=== PATIENT | male | born 1955 | race Caucasian/White ===

== ENCOUNTER 2021-04-01 08:06 | Inpatient (IN) | payer MEDICAID ==
[~2021-04-01] VITALS: Ht 162.6 cm; Wt 84.4 kg
[2021-04-01] MEDS ORDERED: ONDANSETRON HCL 4MG/2ML INJ IV STA (08:36)
[2021-04-01] MEDS ORDERED: MORPHINE SULFATE 4 MG/ML CPJ (NOT FOR IM USE) IV STA (08:36)
[2021-04-01] MEDS ORDERED: SODIUM CHLORIDE 0.9% 500 ML IV ONE (08:45)
[2021-04-01 09:01] LABS: BASOPHILS % 0.1 % (0.0-2.0); EOSINOPHILS % 4.2 % (0.0-5.0); HEMOGLOBIN. 8.7 g/dL (14.0-18.0); LYMPHOCYTES % 21.9 % (20.0-50.0); MEAN CORPUSCULAR VOLUME 95.4 fL (80.0-94.0); MEAN PLATELET VOLUME 9.8 fl (7.4-10.4); MONOCYTES % 10.1 % (2.0-8.0); NEUTROPHILS % 63.7 % (40.0-76.0); PLATELET 173 x1000/uL (130-400); RED BLOOD CELL COUNT 2.73 mill/uL (4.7-6.1); RED CELL DISTRIBUTION WIDTH 14.1 % (11.6-14.6)
[2021-04-01 09:06] LABS: CHLORIDE 115 mEq/L (98-107)
[2021-04-01] MEDS ORDERED: MAGNESIUM CITRATE 300ML SOLUTION PO ONE (09:45)
[2021-04-01] MEDS ORDERED: POLYETHYLENE GLYCOL 3350 (17GM) 1 DOSE PACK PO ONE (09:45)
[2021-04-01 13:02] LABS: CLARITY URINE CLEAR (CLEAR); COLOR URINE YELLOW (YELLOW); KETONES URINE NEGATIVE (NEGATIVE); LEUKOCYTE ESTERASE URINE NEGATIVE (NEGATIVE); NITRITE URINE NEGATIVE (NEGATIVE); OCCULT BLOOD URINE 1+ (NEGATIVE); PROTEIN URINE 3+ (NEGATIVE); SPECIFIC GRAVITY URINE 1.013 (1.005-1.030); UROBILINOGEN URINE 0.2 E.U./dL (0.2-1.0)
[2021-04-01] MEDS: ONDANSETRON HCL 4MG/2ML INJ IV PRN (15:35)
[2021-04-01] MEDS: DOCUSATE SODIUM 250MG CAPSULE PO SCH (15:35)
[2021-04-01] MEDS: AMLODIPINE 10MG TABLET PO SCH (15:36)
[2021-04-01] MEDS ORDERED: FURO40TA5 MT (15:58)
[2021-04-01] MEDS ORDERED: OMEP20CA14 MT (15:58)
[2021-04-01] MEDS ORDERED: PRED5TAB MT (15:58)
[2021-04-01] MEDS ORDERED: HYDR100T26 MT (15:58)
[2021-04-01] MEDS ORDERED: AMLO5TAB88 MT (15:58)
[2021-04-01] MEDS ORDERED: CLON1PAT11 TP (15:58)
[2021-04-01] MEDS ORDERED: METO-396 MT (15:58)
[2021-04-01 16:00] VITALS: BP 170/86
[2021-04-01 16:48] VITALS: BP 170/86
[2021-04-01] MEDS: FUROSEMIDE 40MG TABLET PO SCH ×2 (17:43→22:01)
[2021-04-01 20:00] VITALS: BP 159/89
[2021-04-01] MEDS ORDERED: EPOETIN ALFA 10000UNITS/ML VIAL SUBCUT SCH (22:45)
[2021-04-02] VITALS: BP 112/61
[2021-04-02] MEDS ORDERED: LACTULOSE 20G/30ML UDC PO NR (03:00)
[2021-04-02 04:00] VITALS: BP 141/72
[2021-04-02 07:24] LABS: BASOPHILS % 1.2 % (0.0-2.0); EOSINOPHILS % 5.4 % (0.0-5.0); HEMATOCRIT. 21.2 % (42.0-52.0); HEMOGLOBIN. 7.3 g/dL (14.0-18.0); LYMPHOCYTES % 30.4 % (20.0-50.0); MEAN CORPUSCULAR HEMOGLOBIN 32.4 pg (28.0-32.0); MEAN PLATELET VOLUME 10.3 fl (7.4-10.4); MONOCYTES % 9.9 % (2.0-8.0); NEUTROPHILS % 53.1 % (40.0-76.0); PLATELET 135 x1000/uL (130-400); RED BLOOD CELL COUNT 2.25 mill/uL (4.7-6.1); RED CELL DISTRIBUTION WIDTH 13.7 % (11.6-14.6)
[2021-04-02 08:00] VITALS: BP 152/69
[2021-04-02] MEDS ORDERED: DESMOPRESSIN ACETATE IVPB 18 MCG in SODIUM CHLORIDE 0.9% 50 ML IV ONE (09:00)
[2021-04-02] MEDS ORDERED: LACTULOSE 20G/30ML UDC PO SCH (09:00)
[2021-04-02] MEDS: DOCUSATE SODIUM 100MG CAPSULE PO SCH ×3 (09:46→16:38)
[2021-04-02] MEDS: AMLODIPINE 10MG TABLET PO SCH (09:46)
[2021-04-02] MEDS: BENAZEPRIL 10MG TABLET PO SCH ×2 (09:46→21:52)
[2021-04-02] MEDS: DOCUSATE SODIUM 250MG CAPSULE PO SCH (09:46)
[2021-04-02] MEDS ORDERED: SODIUM POLYSTYRENE SULFONATE 15 G/60 ML BOT PO SCH (10:00)
[2021-04-02 10:47] LABS: TOTAL IRON BINDING CAPACITY 198 ug/dL (250-450)
[2021-04-02 10:51] LABS: INR 1.1; PROTHROMBIN TIME 11.7 sec (9.6-11.0)
[2021-04-02 12:00] VITALS: BP 148/69
[2021-04-02] MEDS: IRON SUCROSE COMPLEX 100 MG/5 ML ML IV SCH (12:45)
[2021-04-02 16:00] VITALS: BP_SYST 170; BP_SYST 70; BP_DIAS 71
[2021-04-02] MEDS: CLONIDINE 0.1MG TABLET PO PRN (17:33)
[2021-04-02 20:00] VITALS: BP 176/77
[2021-04-02] MEDS ORDERED: EPOETIN ALFA 10000UNITS/ML VIAL SUBCUT ONE (21:30)
[2021-04-02] MEDS: HYDRALAZINE HCL 50MG TABLET PO SCH (21:53)
[2021-04-02] MEDS: EPOETIN ALFA-EPBX 4,000 UNIT/ML VIAL SUBCUT SCH (21:53)
[2021-04-03] VITALS (17 sets, daily range): BP systolic 115–155; BP diastolic 52–71
[2021-04-03] MEDS: HYDRALAZINE HCL 50MG TABLET PO SCH ×3 (06:05→21:48)
[2021-04-03] MEDS ORDERED: DESMOPRESSIN ACETATE IVPB 18 MCG in SODIUM CHLORIDE 0.9% 50 ML IV SCH (07:00)
[2021-04-03] MEDS: IRON SUCROSE COMPLEX 100 MG/5 ML ML IV SCH (09:03)
[2021-04-03] MEDS: AMLODIPINE 10MG TABLET PO SCH (09:03)
[2021-04-03] MEDS: BENAZEPRIL 10MG TABLET PO SCH ×2 (09:04→21:48)
[2021-04-03] MEDS: DOCUSATE SODIUM 100MG CAPSULE PO SCH ×3 (09:04→17:41)
[2021-04-03 09:07] LABS: ANTI-NUCLEAR ANTIBODIES DIRECT Negative (Negative); TRANSFERRIN 150 mg/dL (177-329)
[2021-04-03] MEDS: ONDANSETRON HCL 4MG/2ML INJ IV PRN (09:32)
[2021-04-03] MEDS ORDERED: CEFAZOLIN 1000MG PREMIX 50 ML IV ONE ×2 (12:30→12:39)
[2021-04-03] MEDS ORDERED: LIDOCAINE HCL 1% 20ML VIAL (Pyxis) INJ ONE (12:36)
[2021-04-03] MEDS ORDERED: FENTANYL CITRATE/PF 50MCG/ML 2ML VIAL ONE (12:39)
[2021-04-03] MEDS ORDERED: FENTANYL CITRATE/PF 50MCG/ML 2ML VIAL IV ONE (13:15)
[2021-04-03] MEDS ORDERED: EPOETIN ALFA 10000UNITS/ML VIAL SUBCUT NR (21:30)
[2021-04-03] MEDS ORDERED: EPOETIN ALFA-EPBX 4,000 UNIT/ML VIAL SUBCUT NR (21:30)
[2021-04-03] MEDS: METHYLPREDNISOLONE SOD SUCC 125 MG/2 ML VIAL IV SCH (21:48)
[2021-04-03 22:43] LABS: CLARITY URINE CLOUDY (CLEAR); COLOR URINE YELLOW (YELLOW); KETONES URINE NEGATIVE (NEGATIVE); LEUKOCYTE ESTERASE URINE NEGATIVE (NEGATIVE); NITRITE URINE NEGATIVE (NEGATIVE); OCCULT BLOOD URINE 2+ (NEGATIVE); PH URINE 5.5 (4.5-8.0); PROTEIN URINE 3+ (NEGATIVE); SPECIFIC GRAVITY URINE 1.012 (1.005-1.030); UROBILINOGEN URINE 0.2 E.U./dL (0.2-1.0)
[2021-04-04] VITALS: BP 124/60
[2021-04-04 04:00] VITALS: BP 124/56
[2021-04-04] MEDS: ACETAMINOPHEN 325MG TABLET PO PRN (04:11)
[2021-04-04] MEDS: SEVELAMER CARBONATE 800 MG TABLET PO SCH ×3 (06:22→17:03)
[2021-04-04] MEDS: HYDRALAZINE HCL 50MG TABLET PO SCH ×3 (06:23→21:04)
[2021-04-04] MEDS: METHYLPREDNISOLONE SOD SUCC 125 MG/2 ML VIAL IV SCH ×3 (06:23→21:03)
[2021-04-04 08:00] VITALS: BP 117/47
[2021-04-04] MEDS: AMLODIPINE 10MG TABLET PO SCH (09:09)
[2021-04-04] MEDS: IRON SUCROSE COMPLEX 100 MG/5 ML ML IV SCH (09:09)
[2021-04-04] MEDS: DOCUSATE SODIUM 100MG CAPSULE PO SCH ×3 (09:09→17:03)
[2021-04-04] MEDS: BENAZEPRIL 10MG TABLET PO SCH ×2 (09:09→20:57)
[2021-04-04 10:03] LABS: MEAN CORPUSCULAR HEMOGLOBIN 31.7 pg (28.0-32.0); MEAN CORPUSCULAR VOLUME 94.2 fL (80.0-94.0); MEAN PLATELET VOLUME 10.5 fl (7.4-10.4); PLATELET 167 x1000/uL (130-400); RED BLOOD CELL COUNT 2.85 mill/uL (4.7-6.1); RED CELL DISTRIBUTION WIDTH 14.1 % (11.6-14.6)
[2021-04-04 10:25] LABS: PHOSPHORUS 6.9 mg/dL (2.5-4.9)
[2021-04-04 10:33] LABS: HEMATOCRIT. 26.9 % (42.0-52.0)
[2021-04-04 12:00] VITALS: BP 123/52
[2021-04-04 12:44] LABS: PLATELET ESTIMATE NORMAL
[2021-04-04 16:00] VITALS: BP 115/55
[2021-04-04] MEDS: OMEPRAZOLE 20MG CAPSULE EXTENDED RELEASE PO SCH (17:03)
[2021-04-04 20:00] VITALS: BP 119/52
[2021-04-04] MEDS: EPOETIN ALFA-EPBX 4,000 UNIT/ML VIAL SUBCUT SCH (20:57)
[2021-04-04] MEDS: LACTULOSE 20G/30ML UDC PO PRN (21:11)
[2021-04-05] VITALS: BP 117/54
[2021-04-05 04:00] VITALS: BP 143/68
[2021-04-05] MEDS: HYDRALAZINE HCL 50MG TABLET PO SCH ×3 (05:41→22:01)
[2021-04-05] MEDS: METHYLPREDNISOLONE SOD SUCC 125 MG/2 ML VIAL IV SCH ×2 (05:41→13:08)
[2021-04-05] MEDS: OMEPRAZOLE 20MG CAPSULE EXTENDED RELEASE PO SCH (05:42)
[2021-04-05] MEDS ORDERED: HEPATITIS B VIRUS VACCINE-PF 10 MCG/0.5 VIAL IM ONE (06:45)
[2021-04-05] MEDS: SEVELAMER CARBONATE 800 MG TABLET PO SCH ×3 (06:59→17:37)
[2021-04-05 08:00] VITALS: BP 122/58
[2021-04-05] MEDS: IRON SUCROSE COMPLEX 100 MG/5 ML ML IV SCH (09:41)
[2021-04-05] MEDS: DOCUSATE SODIUM 100MG CAPSULE PO SCH ×3 (09:42→17:37)
[2021-04-05] MEDS: AMLODIPINE 10MG TABLET PO SCH (09:42)
[2021-04-05] MEDS: BENAZEPRIL 10MG TABLET PO SCH ×2 (09:42→22:01)
[2021-04-05 12:00] VITALS: BP 116/52
[2021-04-05] MEDS ORDERED: HEPARIN SODIUM 1,000 UNIT/1ML VIAL IV NR (15:15)
[2021-04-05 16:00] VITALS: BP 135/63
[2021-04-05] MEDS: LACTULOSE 20G/30ML UDC PO PRN (17:37)
[2021-04-05 20:00] VITALS: BP 138/66
[2021-04-05] MEDS ORDERED: EPOETIN ALFA-EPBX 4,000 UNIT/ML VIAL SUBCUT NR (21:00)
[2021-04-05] MEDS ORDERED: DEXTROSE 50% WATER 50ML SYRINGE IV PRN (21:30)
[2021-04-05] MEDS: METHYLPREDNISOLONE SOD SUCC 40 MG/ML VIAL IV SCH (22:02)
[2021-04-06 04:00] VITALS: BP 138/66
[2021-04-06] MEDS: BLOOD SUGAR DIAGNOSTIC STRIP TEST SCH ×4 (06:07→21:00)
[2021-04-06] MEDS: HYDRALAZINE HCL 50MG TABLET PO SCH ×3 (06:07→21:09)
[2021-04-06] MEDS: METHYLPREDNISOLONE SOD SUCC 40 MG/ML VIAL IV SCH ×2 (06:07→13:07)
[2021-04-06] MEDS: OMEPRAZOLE 20MG CAPSULE EXTENDED RELEASE PO SCH (06:07)
[2021-04-06] MEDS: INSULIN LISPRO 100 UNITS/ML SUBCUT SCH ×4 (06:52→21:11)
[2021-04-06 07:16] LABS: HEMATOCRIT. 25.5 % (42.0-52.0); HEMOGLOBIN. 8.6 g/dL (14.0-18.0); MEAN CORPUSCULAR HEMOGLOBIN 31.2 pg (28.0-32.0); MEAN PLATELET VOLUME 10.1 fl (7.4-10.4); PLATELET 196 x1000/uL (130-400); RED BLOOD CELL COUNT 2.77 mill/uL (4.7-6.1); RED CELL DISTRIBUTION WIDTH 14.1 % (11.6-14.6)
[2021-04-06 08:00] VITALS: BP 122/65
[2021-04-06] MEDS: BENAZEPRIL 10MG TABLET PO SCH ×2 (09:27→21:09)
[2021-04-06] MEDS: SEVELAMER CARBONATE 800 MG TABLET PO SCH ×3 (09:27→17:57)
[2021-04-06] MEDS: DOCUSATE SODIUM 100MG CAPSULE PO SCH ×3 (09:27→17:57)
[2021-04-06] MEDS: AMLODIPINE 10MG TABLET PO SCH (09:27)
[2021-04-06] MEDS: IRON SUCROSE COMPLEX 100 MG/5 ML ML IV SCH (09:28)
[2021-04-06 12:00] VITALS: BP 146/65
[2021-04-06 13:37] LABS: PLATELET ESTIMATE NORMAL
[2021-04-06 16:00] VITALS: BP 135/62
[2021-04-06] MEDS ORDERED: TUBERCULIN,PURIF.PROT.DERIV. 5 TU/0.1 ML SYR ID ONE (17:00)
[2021-04-06 19:07] LABS: ANTI-MYELOPEROXIDASE AB 13.4 U/mL (0.0-9.0); ANTI-PROTEINASE 3 ABS < 3.5 U/mL (0.0-3.5)
[2021-04-06 20:00] VITALS: BP 133/60
[2021-04-06] MEDS ORDERED: EPOETIN ALFA-EPBX 4,000 UNIT/ML VIAL SUBCUT NR (21:00)
[2021-04-06] MEDS: PREDNISONE 20MG TABLET PO SCH (21:09)
[2021-04-07] VITALS: BP 126/62
[2021-04-07 04:00] VITALS: BP 147/69
[2021-04-07] MEDS: OMEPRAZOLE 20MG CAPSULE EXTENDED RELEASE PO SCH (05:42)
[2021-04-07] MEDS: BLOOD SUGAR DIAGNOSTIC STRIP TEST SCH ×4 (05:43→20:52)
[2021-04-07] MEDS: HYDRALAZINE HCL 50MG TABLET PO SCH ×3 (05:43→20:59)
[2021-04-07] MEDS: INSULIN LISPRO 100 UNITS/ML SUBCUT SCH ×4 (06:33→20:52)
[2021-04-07] MEDS: SEVELAMER CARBONATE 800 MG TABLET PO SCH ×3 (07:10→16:46)
[2021-04-07 08:00] VITALS: BP 148/65
[2021-04-07] MEDS: BENAZEPRIL 10MG TABLET PO SCH ×2 (09:00→20:59)
[2021-04-07] MEDS: AMLODIPINE 10MG TABLET PO SCH (09:00)
[2021-04-07] MEDS: DOCUSATE SODIUM 100MG CAPSULE PO SCH ×3 (09:00→16:46)
[2021-04-07] MEDS: PREDNISONE 20MG TABLET PO SCH ×2 (09:00→16:46)
[2021-04-07] MEDS ORDERED: BACITRACIN 15GM TUBE TOP ONE (11:44)
[2021-04-07] MEDS ORDERED: LIDOCAINE HCL 1% 20ML VIAL (Pyxis) INJ ONE (11:44)
[2021-04-07] MEDS ORDERED: BUPIVACAINE HCL/PF 0.5% (5MG/ML) 10ML ONE (11:44)
[2021-04-07] MEDS ORDERED: SODIUM CHLORIDE 0.9% INJ 10ML FLUSH IVF ONE (11:44)
[2021-04-07] MEDS ORDERED: THROMBIN (BOVINE) 5000 UNITS/VIAL TOP ONE (11:44)
[2021-04-07] MEDS ORDERED: POLYMYXIN B SULFATE 500000 UNITS/VIAL ONE (11:45)
[2021-04-07] MEDS ORDERED: SODIUM CHLORIDE 0.9% 1,000 ML ONE (11:45)
[2021-04-07] MEDS ORDERED: HEPARIN SODIUM 1,000 UNIT/1ML VIAL IV ONE (11:49)
[2021-04-07] MEDS ORDERED: FENTANYL CITRATE/PF 50MCG/ML 2ML VIAL ONE (12:17)
[2021-04-07] MEDS ORDERED: MIDAZOLAM HCL 2 MG/2 ML VIAL ONE (12:17)
[2021-04-07] MEDS ORDERED: PROPOFOL 200MG/20ML VIAL IV ONE (12:17)
[2021-04-07] MEDS ORDERED: DESMOPRESSIN ACETATE IVPB 18 MCG in SODIUM CHLORIDE 0.9% 50 ML IV NR (12:30)
[2021-04-07] MEDS ORDERED: FENTANYL CITRATE/PF 50MCG/ML 2ML VIAL IV PRN (13:15)
[2021-04-07] MEDS ORDERED: MORPHINE SULFATE 2 MG/ML CPJ (NOT FOR IM USE) IV PRN (13:30)
[2021-04-07] MEDS ORDERED: NALOXONE HCL 0.4MG/ML VIAL IV PRN (13:45)
[2021-04-07 16:00] VITALS: BP 164/75
[2021-04-07 20:00] VITALS: BP 144/69
[2021-04-08] VITALS: BP 128/57
[2021-04-08 04:00] VITALS: BP 127/60
[2021-04-08] MEDS: BLOOD SUGAR DIAGNOSTIC STRIP TEST SCH ×4 (05:42→21:43)
[2021-04-08] MEDS: LACTULOSE 20G/30ML UDC PO PRN (05:42)
[2021-04-08] MEDS: INSULIN LISPRO 100 UNITS/ML SUBCUT SCH ×4 (05:42→21:44)
[2021-04-08] MEDS: OMEPRAZOLE 20MG CAPSULE EXTENDED RELEASE PO SCH (05:42)
[2021-04-08] MEDS: HYDRALAZINE HCL 50MG TABLET PO SCH ×3 (05:42→21:43)
[2021-04-08 08:00] VITALS: BP 140/64
[2021-04-08] MEDS: SEVELAMER CARBONATE 800 MG TABLET PO SCH ×3 (09:28→17:22)
[2021-04-08] MEDS: AMLODIPINE 10MG TABLET PO SCH (09:28)
[2021-04-08] MEDS: DOCUSATE SODIUM 100MG CAPSULE PO SCH ×3 (09:28→17:22)
[2021-04-08] MEDS: BENAZEPRIL 10MG TABLET PO SCH ×2 (09:28→21:43)
[2021-04-08] MEDS: PREDNISONE 20MG TABLET PO SCH ×2 (09:28→17:22)
[2021-04-08 12:00] VITALS: BP 130/63
[2021-04-08 13:11] LABS: ATYPICAL P-ANCA <1:20 titer (Neg:<1:20); CYTOPLASMIC C-ANCA <1:20 titer (Neg:<1:20); PERINUCLEAR P-ANCA 1:40 titer (Neg:<1:20)
[2021-04-08 16:00] VITALS: BP 142/60
[2021-04-08 20:00] VITALS: BP 150/70
[2021-04-08] MEDS ORDERED: HEPATITIS B VIRUS VACCINE-PF 10 MCG/0.5 VIAL IM ONE (23:00)
[2021-04-09] VITALS: BP 141/63
[2021-04-09 04:45] VITALS: BP 123/67
[2021-04-09] MEDS: HYDRALAZINE HCL 50MG TABLET PO SCH ×3 (06:00→21:26)
[2021-04-09] MEDS: BLOOD SUGAR DIAGNOSTIC STRIP TEST SCH ×4 (06:21→21:00)
[2021-04-09] MEDS: INSULIN LISPRO 100 UNITS/ML SUBCUT SCH ×4 (06:21→21:34)
[2021-04-09] MEDS: OMEPRAZOLE 20MG CAPSULE EXTENDED RELEASE PO SCH (07:13)
[2021-04-09] MEDS: SEVELAMER CARBONATE 800 MG TABLET PO SCH ×3 (07:59→17:36)
[2021-04-09 08:00] VITALS: BP 148/72
[2021-04-09] MEDS: AMLODIPINE 10MG TABLET PO SCH (09:00)
[2021-04-09] MEDS: BENAZEPRIL 10MG TABLET PO SCH ×3 (09:00→21:25)
[2021-04-09] MEDS ORDERED: PREDNISONE 20MG TABLET PO SCH (09:00)
[2021-04-09] MEDS: DOCUSATE SODIUM 100MG CAPSULE PO SCH ×3 (09:46→16:11)
[2021-04-09 12:00] VITALS: BP 143/68
[2021-04-09 16:00] VITALS: BP 160/77
[2021-04-09] MEDS: LACTULOSE 20G/30ML UDC PO PRN (18:25)
[2021-04-09 20:00] VITALS: BP 145/70
[2021-04-09] MEDS ORDERED: EPOETIN ALFA-EPBX 4,000 UNIT/ML VIAL SUBCUT NR (21:00)
[2021-04-10] VITALS (8 sets, daily range): BP systolic 144–168; BP diastolic 68–82
[2021-04-10] MEDS: HYDRALAZINE HCL 50MG TABLET PO SCH (05:36)
[2021-04-10] MEDS: OMEPRAZOLE 20MG CAPSULE EXTENDED RELEASE PO SCH (05:36)
[2021-04-10] MEDS: BLOOD SUGAR DIAGNOSTIC STRIP TEST SCH ×4 (06:19→21:00)
[2021-04-10] MEDS: INSULIN LISPRO 100 UNITS/ML SUBCUT SCH ×4 (06:19→21:00)
[2021-04-10] MEDS ORDERED: SEVE800T8 PO (08:03)
[2021-04-10] MEDS: DOCUSATE SODIUM 100MG CAPSULE PO SCH ×3 (08:56→18:25)
[2021-04-10] MEDS: SEVELAMER CARBONATE 800 MG TABLET PO SCH ×3 (08:56→18:25)
[2021-04-10] MEDS: PREDNISONE 20MG TABLET PO SCH (08:57)
[2021-04-10] MEDS: AMLODIPINE 10MG TABLET PO SCH (08:57)
[2021-04-10] MEDS: BENAZEPRIL 10MG TABLET PO SCH ×2 (08:57→22:12)
[2021-04-10] MEDS: HYDRALAZINE HCL 100MG TABLET PO SCH ×2 (13:10→22:12)
[2021-04-10] MEDS: LACTULOSE 20G/30ML UDC PO PRN (18:26)
[2021-04-11] VITALS: BP 151/71
[2021-04-11 04:00] VITALS: BP 142/73
[2021-04-11] MEDS: INSULIN LISPRO 100 UNITS/ML SUBCUT SCH ×4 (06:25→20:58)
[2021-04-11] MEDS: BLOOD SUGAR DIAGNOSTIC STRIP TEST SCH ×4 (06:25→20:58)
[2021-04-11] MEDS: SEVELAMER CARBONATE 800 MG TABLET PO SCH ×3 (06:26→17:00)
[2021-04-11] MEDS: OMEPRAZOLE 20MG CAPSULE EXTENDED RELEASE PO SCH (06:26)
[2021-04-11] MEDS: HYDRALAZINE HCL 100MG TABLET PO SCH ×3 (06:26→21:02)
[2021-04-11 08:00] VITALS: BP 150/68
[2021-04-11] MEDS: BENAZEPRIL 10MG TABLET PO SCH ×2 (08:25→21:02)
[2021-04-11] MEDS: PREDNISONE 20MG TABLET PO SCH (08:25)
[2021-04-11] MEDS: DOCUSATE SODIUM 100MG CAPSULE PO SCH ×3 (08:25→17:00)
[2021-04-11] MEDS: AMLODIPINE 10MG TABLET PO SCH (08:26)
[2021-04-11 12:00] VITALS: BP 144/65
[2021-04-11 16:00] VITALS: BP 138/77
[2021-04-11] MEDS: LACTULOSE 20G/30ML UDC PO PRN (17:00)
[2021-04-11] MEDS: ONDANSETRON HCL 4MG TABLET PO PRN (18:26)
[2021-04-11 20:00] VITALS: BP 144/69
[2021-04-11] MEDS ORDERED: EPOETIN ALFA-EPBX 4,000 UNIT/ML VIAL SUBCUT SCH (21:00)
[2021-04-12] VITALS: BP 151/67
[2021-04-12 04:00] VITALS: BP 141/59
[2021-04-12] MEDS: HYDRALAZINE HCL 100MG TABLET PO SCH ×3 (06:11→21:05)
[2021-04-12] MEDS: OMEPRAZOLE 20MG CAPSULE EXTENDED RELEASE PO SCH (06:12)
[2021-04-12] MEDS: BLOOD SUGAR DIAGNOSTIC STRIP TEST SCH ×4 (06:12→21:15)
[2021-04-12] MEDS: INSULIN LISPRO 100 UNITS/ML SUBCUT SCH ×4 (06:12→21:00)
[2021-04-12] MEDS: SEVELAMER CARBONATE 800 MG TABLET PO SCH ×3 (06:12→16:59)
[2021-04-12 08:00] VITALS: BP 137/66
[2021-04-12] MEDS: DOCUSATE SODIUM 100MG CAPSULE PO SCH ×3 (09:11→16:59)
[2021-04-12] MEDS: AMLODIPINE 10MG TABLET PO SCH (09:11)
[2021-04-12] MEDS: BENAZEPRIL 10MG TABLET PO SCH ×2 (09:12→21:05)
[2021-04-12 12:00] VITALS: BP 143/68
[2021-04-12 16:00] VITALS: BP 125/43
[2021-04-12 20:00] VITALS: BP 146/60
[2021-04-12] MEDS ORDERED: LACTULOSE 20G/30ML UDC PO NR (20:00)
[2021-04-13] VITALS: BP 147/64
[2021-04-13 04:00] VITALS: BP 158/56
[2021-04-13] MEDS: INSULIN LISPRO 100 UNITS/ML SUBCUT SCH ×4 (05:47→21:09)
[2021-04-13] MEDS: BLOOD SUGAR DIAGNOSTIC STRIP TEST SCH ×4 (05:47→21:15)
[2021-04-13] MEDS: OMEPRAZOLE 20MG CAPSULE EXTENDED RELEASE PO SCH (06:11)
[2021-04-13] MEDS: SEVELAMER CARBONATE 800 MG TABLET PO SCH ×3 (06:11→16:57)
[2021-04-13] MEDS: HYDRALAZINE HCL 100MG TABLET PO SCH ×3 (06:11→21:08)
[2021-04-13 06:47] LABS: BASOPHILS % 0.1 % (0.0-2.0); HEMATOCRIT. 27.8 % (42.0-52.0); HEMOGLOBIN. 9.7 g/dL (14.0-18.0); MEAN CORPUSCULAR VOLUME 94.6 fL (80.0-94.0); MEAN PLATELET VOLUME 8.7 fl (7.4-10.4); MONOCYTES % 12.7 % (2.0-8.0); NEUTROPHILS % 75.2 % (40.0-76.0); PLATELET 146 x1000/uL (130-400); RED BLOOD CELL COUNT 2.94 mill/uL (4.7-6.1); RED CELL DISTRIBUTION WIDTH 14.8 % (11.6-14.6)
[2021-04-13 08:00] VITALS: BP 142/67
[2021-04-13] MEDS: BENAZEPRIL 10MG TABLET PO SCH ×2 (08:30→21:08)
[2021-04-13] MEDS: AMLODIPINE 10MG TABLET PO SCH (08:30)
[2021-04-13] MEDS: DOCUSATE SODIUM 100MG CAPSULE PO SCH ×3 (08:30→16:57)
[2021-04-13] MEDS: ONDANSETRON HCL 4MG TABLET PO PRN (08:35)
[2021-04-13 12:00] VITALS: BP 143/64
[2021-04-13 16:00] VITALS: BP 139/64
[2021-04-13 20:00] VITALS: BP 158/74
[2021-04-13] MEDS: LACTULOSE 20G/30ML UDC PO PRN (23:37)
[2021-04-14] VITALS (7 sets, daily range): BP systolic 111–170; BP diastolic 58–78
[2021-04-14] MEDS: CLONIDINE 0.1MG TABLET PO PRN (05:01)
[2021-04-14] MEDS: OMEPRAZOLE 20MG CAPSULE EXTENDED RELEASE PO SCH (06:43)
[2021-04-14] MEDS: BLOOD SUGAR DIAGNOSTIC STRIP TEST SCH ×4 (06:43→21:22)
[2021-04-14] MEDS: HYDRALAZINE HCL 100MG TABLET PO SCH ×3 (06:47→21:22)
[2021-04-14] MEDS: INSULIN LISPRO 100 UNITS/ML SUBCUT SCH ×4 (07:10→21:00)
[2021-04-14] MEDS: BENAZEPRIL 10MG TABLET PO SCH ×2 (08:47→21:22)
[2021-04-14] MEDS: FUROSEMIDE 40MG TABLET PO SCH (08:47)
[2021-04-14] MEDS: SEVELAMER CARBONATE 800 MG TABLET PO SCH ×3 (08:47→18:50)
[2021-04-14] MEDS: DOCUSATE SODIUM 100MG CAPSULE PO SCH ×3 (08:47→17:00)
[2021-04-14] MEDS: AMLODIPINE 10MG TABLET PO SCH (08:48)
[2021-04-14] MEDS: ACETAMINOPHEN 325MG TABLET PO PRN ×2 (08:53→21:24)
[2021-04-14] MEDS: LACTULOSE 20G/30ML UDC PO PRN (18:50)
[2021-04-14] MEDS ORDERED: EPOETIN ALFA 10000UNITS/ML VIAL SUBCUT SCH (21:00)
[2021-04-14] MEDS: EPOETIN ALFA-EPBX 4,000 UNIT/ML VIAL SUBCUT SCH (21:21)
[2021-04-15] VITALS: BP 142/65
[2021-04-15 04:00] VITALS: BP 149/65
[2021-04-15] MEDS: SEVELAMER CARBONATE 800 MG TABLET PO SCH ×3 (06:54→16:48)
[2021-04-15] MEDS: HYDRALAZINE HCL 100MG TABLET PO SCH ×3 (06:54→21:05)
[2021-04-15] MEDS: INSULIN LISPRO 100 UNITS/ML SUBCUT SCH ×4 (06:55→21:00)
[2021-04-15] MEDS: OMEPRAZOLE 20MG CAPSULE EXTENDED RELEASE PO SCH (06:55)
[2021-04-15] MEDS: BLOOD SUGAR DIAGNOSTIC STRIP TEST SCH ×4 (06:55→21:00)
[2021-04-15 08:00] VITALS: BP 139/70
[2021-04-15] MEDS: DOCUSATE SODIUM 100MG CAPSULE PO SCH ×3 (08:27→16:48)
[2021-04-15] MEDS: FUROSEMIDE 40MG TABLET PO SCH (08:27)
[2021-04-15] MEDS: BENAZEPRIL 10MG TABLET PO SCH ×2 (08:28→21:05)
[2021-04-15] MEDS: AMLODIPINE 10MG TABLET PO SCH (08:30)
[2021-04-15 12:00] VITALS: BP 135/60
[2021-04-15 16:00] VITALS: BP 146/67
[2021-04-15] MEDS: ACETAMINOPHEN 325MG TABLET PO PRN ×2 (16:48→21:05)
[2021-04-15 20:00] VITALS: BP 138/62
[2021-04-15] MEDS: EPOETIN ALFA-EPBX 4,000 UNIT/ML VIAL SUBCUT SCH (21:00)
[2021-04-16] VITALS (7 sets, daily range): BP systolic 135–169; BP diastolic 57–82
[2021-04-16] MEDS: OMEPRAZOLE 20MG CAPSULE EXTENDED RELEASE PO SCH (06:03)
[2021-04-16] MEDS: HYDRALAZINE HCL 100MG TABLET PO SCH ×2 (06:03→13:13)
[2021-04-16] MEDS: BLOOD SUGAR DIAGNOSTIC STRIP TEST SCH ×4 (06:03→21:00)
[2021-04-16] MEDS: INSULIN LISPRO 100 UNITS/ML SUBCUT SCH ×4 (07:10→21:16)
[2021-04-16 08:17] LABS: BASOPHILS % 0.2 % (0.0-2.0); EOSINOPHILS % 1.1 % (0.0-5.0); HEMATOCRIT. 30.6 % (42.0-52.0); HEMOGLOBIN. 10.3 g/dL (14.0-18.0); LYMPHOCYTES % 10.3 % (20.0-50.0); MEAN CORPUSCULAR HEMOGLOBIN 32.6 pg (28.0-32.0); MEAN PLATELET VOLUME 9.2 fl (7.4-10.4); MONOCYTES % 10.8 % (2.0-8.0); NEUTROPHILS % 77.6 % (40.0-76.0); PLATELET 139 x1000/uL (130-400); RED BLOOD CELL COUNT 3.16 mill/uL (4.7-6.1); RED CELL DISTRIBUTION WIDTH 15.8 % (11.6-14.6)
[2021-04-16] MEDS: AMLODIPINE 10MG TABLET PO SCH (08:43)
[2021-04-16] MEDS: SEVELAMER CARBONATE 800 MG TABLET PO SCH ×3 (08:43→17:53)
[2021-04-16] MEDS: BENAZEPRIL 10MG TABLET PO SCH ×2 (08:44→21:28)
[2021-04-16] MEDS: FUROSEMIDE 40MG TABLET PO SCH (08:44)
[2021-04-16] MEDS: DOCUSATE SODIUM 100MG CAPSULE PO SCH ×3 (08:44→17:53)
[2021-04-16] MEDS: ACETAMINOPHEN 325MG TABLET PO PRN (08:47)
[2021-04-16] MEDS: ONDANSETRON HCL 4MG TABLET PO PRN (08:50)
[2021-04-16] MEDS ORDERED: LEVOFLOXACIN 250MG TABLET PO NR (17:00)
[2021-04-16] MEDS: LACTULOSE 20G/30ML UDC PO PRN (17:53)
[2021-04-16] MEDS ORDERED: CEFAZOLIN 1000MG PREMIX 50 ML IV NR (20:00)
[2021-04-17] VITALS: BP 144/73
[2021-04-17] MEDS: HYDRALAZINE HCL 100MG TABLET PO SCH ×4 (00:03→21:10)
[2021-04-17 04:00] VITALS: BP 144/68
[2021-04-17] MEDS: BLOOD SUGAR DIAGNOSTIC STRIP TEST SCH ×4 (06:41→21:09)
[2021-04-17] MEDS: INSULIN LISPRO 100 UNITS/ML SUBCUT SCH ×4 (06:46→21:00)
[2021-04-17] MEDS: OMEPRAZOLE 20MG CAPSULE EXTENDED RELEASE PO SCH (06:50)
[2021-04-17] MEDS: SEVELAMER CARBONATE 800 MG TABLET PO SCH ×3 (06:51→17:15)
[2021-04-17 08:00] VITALS: BP 136/62
[2021-04-17] MEDS: DOCUSATE SODIUM 100MG CAPSULE PO SCH ×3 (08:26→17:00)
[2021-04-17] MEDS: BENAZEPRIL 10MG TABLET PO SCH ×2 (08:27→21:09)
[2021-04-17] MEDS: AMLODIPINE 10MG TABLET PO SCH (08:27)
[2021-04-17] MEDS: FUROSEMIDE 40MG TABLET PO SCH (08:27)
[2021-04-17 12:00] VITALS: BP 129/65
[2021-04-17] MEDS: ONDANSETRON HCL 4MG TABLET PO PRN (12:28)
[2021-04-17 16:00] VITALS: BP 130/61
[2021-04-17 20:00] VITALS: BP 152/65
[2021-04-17] MEDS ORDERED: EPOETIN ALFA-EPBX 4,000 UNIT/ML VIAL SUBCUT SCH (21:00)
[2021-04-17] MEDS: ACETAMINOPHEN 325MG TABLET PO PRN (21:07)
[2021-04-18] VITALS: BP 135/72
[2021-04-18] MEDS: ACETAMINOPHEN 325MG TABLET PO PRN ×3 (02:56→18:09)
[2021-04-18 04:00] VITALS: BP 138/62
[2021-04-18] MEDS: HYDRALAZINE HCL 100MG TABLET PO SCH ×2 (05:07→13:17)
[2021-04-18] MEDS: OMEPRAZOLE 20MG CAPSULE EXTENDED RELEASE PO SCH (05:07)
[2021-04-18] MEDS: BLOOD SUGAR DIAGNOSTIC STRIP TEST SCH ×2 (06:06→11:24)
[2021-04-18] MEDS: INSULIN LISPRO 100 UNITS/ML SUBCUT SCH ×2 (07:15→11:25)
[2021-04-18 08:00] VITALS: BP 135/59
[2021-04-18] MEDS: DOCUSATE SODIUM 100MG CAPSULE PO SCH ×3 (09:00→16:34)
[2021-04-18] MEDS: SEVELAMER CARBONATE 800 MG TABLET PO SCH ×3 (09:01→18:06)
[2021-04-18] MEDS: FUROSEMIDE 40MG TABLET PO SCH (09:03)
[2021-04-18] MEDS: AMLODIPINE 10MG TABLET PO SCH (09:03)
[2021-04-18] MEDS: BENAZEPRIL 10MG TABLET PO SCH (09:03)
[2021-04-18] MEDS: LACTULOSE 20G/30ML UDC PO PRN (09:08)
[2021-04-18 10:25] LABS: HEMATOCRIT. 30.2 % (42.0-52.0); MEAN CORPUSCULAR VOLUME 96.6 fL (80.0-94.0); MEAN PLATELET VOLUME 8.3 fl (7.4-10.4); PLATELET 147 x1000/uL (130-400); RED BLOOD CELL COUNT 3.13 mill/uL (4.7-6.1); RED CELL DISTRIBUTION WIDTH 15.4 % (11.6-14.6)
[2021-04-18] MEDS ORDERED: LEVOFLOXACIN 250MG TABLET PO SCH (11:00)
[2021-04-18] MEDS: ONDANSETRON HCL 4MG TABLET PO PRN ×2 (11:21→18:54)
[2021-04-18 12:00] VITALS: BP 135/60
[2021-04-18 16:00] VITALS: BP 131/66
[2021-04-18] MEDS ORDERED: EPOETIN ALFA-EPBX 4,000 UNIT/ML VIAL SUBCUT SCH (21:00)
[2021-04-19 08:43] LABS: PLATELET ESTIMATE NORMAL
== END 2021-04-18 19:30 | disposition home or self-care (01) | DRG 444 ==
LOC: ER 08:06 → 7EST 11:57 → ENRESERV 13:19 → 5WST 04-17 16:01 → 8WST 04-18 14:24
PROVIDERS: ADMIT Internal Medicine; ATTEND Internal Medicine
PROC: 0JH63XZ Insertion of Tunneled Vascular Access Device into Chest Subcutaneous Tissue and Fascia, Percutaneous Approach (ICD-10-PCS; principal; 2021-04-03)
PROC: 02HV33Z Insertion of Infusion Device into Superior Vena Cava, Percutaneous Approach (ICD-10-PCS; 2021-04-03)
PROC: B518ZZA Fluoroscopy of Superior Vena Cava, Guidance (ICD-10-PCS; 2021-04-03)
PROC: B548ZZA Ultrasonography of Superior Vena Cava, Guidance (ICD-10-PCS; 2021-04-03)
PROC: 5A1D70Z Performance of Urinary Filtration, Intermittent, Less than 6 Hours Per Day (ICD-10-PCS; 2021-04-05)
PROC: 03180ZD Bypass Left Brachial Artery to Upper Arm Vein, Open Approach (ICD-10-PCS; 2021-04-07)
PROC: 5A1D70Z Performance of Urinary Filtration, Intermittent, Less than 6 Hours Per Day (ICD-10-PCS; 2021-04-08)
PROC: 5A1D70Z Performance of Urinary Filtration, Intermittent, Less than 6 Hours Per Day (ICD-10-PCS; 2021-04-10)
PROC: 5A1D70Z Performance of Urinary Filtration, Intermittent, Less than 6 Hours Per Day (ICD-10-PCS; 2021-04-11)
PROC: 5A1D70Z Performance of Urinary Filtration, Intermittent, Less than 6 Hours Per Day (ICD-10-PCS; 2021-04-14)
PROC: 5A1D70Z Performance of Urinary Filtration, Intermittent, Less than 6 Hours Per Day (ICD-10-PCS; 2021-04-16)
DX: N17.9 Acute kidney failure, unspecified (principal); E43 Unspecified severe protein-calorie malnutrition; I12.0 Hypertensive chronic kidney disease with stage 5 chronic kidney disease or end stage renal disease; E83.51 Hypocalcemia; I82.612 Acute embolism and thrombosis of superficial veins of left upper extremity; E87.8 Other disorders of electrolyte and fluid balance, not elsewhere classified; K59.00 Constipation, unspecified; E87.70 Fluid overload, unspecified; E87.5 Hyperkalemia; D64.9 Anemia, unspecified; Z20.822 Contact with and (suspected) exposure to COVID-19; N18.6 End stage renal disease; Z68.31 Body mass index [BMI] 31.0-31.9, adult; Z79.899 Other long term (current) drug therapy; Z99.2 Dependence on renal dialysis; L03.114 Cellulitis of left upper limb
CPT/HCPCS: 36415; 36558; 71045; 74176; 76770; 76937; 77001; 80048; 80053; 81003; 82270; 82962; 83520; 83540; 83550; 83880; 84100; 84145; 84466; 84484; 85025; 85651; 86038; 86160; 86256; 86705; 86706; 86803; 87070; 87426; 90585; 90743; 93005; 93971; 99152; 99153; 99285; C1750; C1769; C1893; J0690; J0885; J1642; J1644; J1815; J2250; J2270; J2405; J2597; J2704; J2920; J2930; J3010; J3490; J7030; J7040; J7512; Q0162; U0003; U0005; G0500

== ENCOUNTER → 2021-07-31 | Day surgery (SDC) | payer MEDICARE, MEDICAID ==
[~2021-07-31] VITALS: Ht 165.1 cm; Wt 66.7 kg
[~2021-07-31] MED LIST: AMLO5TAB88 MT; BACITRACIN 15GM TUBE TOP ONE; BUPIVACAINE HCL/PF 0.5% (5MG/ML) 10ML ONE; CALC667T6 MT; CLON1PAT11 TP; DOCU-138 MT; FENTANYL CITRATE/PF 50MCG/ML 2ML VIAL ONE; FERR325T6 MT; FURO40TA5 MT; GLYCOPYRROLATE 0.2 MG/ML 2ML VIAL ONE; HEPARIN 1000 UNITS/ML 2ML VIAL ONE; HYDR100T26 MT; HYDROMORPHONE HCL/PF 2MG/ML CPJ IV PRN; LABETALOL 5MG/ML SYR 20 MG/4 ML SYRINGE IV PRN; LIDOCAINE HCL 1% 20ML VIAL (Pyxis) INJ ONE; MEPERIDINE HCL/PF 25MG/ML CPJ IV PRN; METO-396 MT; METO-539 MT; MIDAZOLAM HCL 2 MG/2 ML VIAL ONE; NIFE20CA PO; OMEP20CA14 MT; ONDANSETRON HCL 4MG/2ML INJ IV PRN; POLYMYXIN B SULFATE 500000 UNITS/VIAL ONE; PRED5TAB MT; PROPOFOL 200MG/20ML VIAL IV ONE; ROPIVACAINE HCL 10MG/ML 20 ML VIAL EPI ONE; SEVE800T8 PO; SODIUM CHLORIDE 0.9% 500 ML IV NR; THROMBIN (BOVINE) 5000 UNITS/VIAL TOP ONE
[2021-07-31 08:49] LABS: BASOPHILS % 0.8 % (0.0-2.0); EOSINOPHILS % 3.5 % (0.0-5.0); HEMATOCRIT. 29.1 % (42.0-52.0); HEMOGLOBIN. 9.9 g/dL (14.0-18.0); LYMPHOCYTES % 19.7 % (20.0-50.0); MEAN CORPUSCULAR HEMOGLOBIN 32.3 pg (28.0-32.0); MEAN CORPUSCULAR VOLUME 95.1 fL (80.0-94.0); MEAN PLATELET VOLUME 8.4 fl (7.4-10.4); MONOCYTES % 7.4 % (2.0-8.0); NEUTROPHILS % 68.6 % (40.0-76.0); PLATELET 171 x1000/uL (130-400); RED BLOOD CELL COUNT 3.06 mill/uL (4.7-6.1); RED CELL DISTRIBUTION WIDTH 16.2 % (11.6-14.6)
[2021-07-31 08:58] LABS: PARTIAL THROMBOPLASTIN TIME 27.6 sec (23.4-31.0)
[2021-07-31 13:32] VITALS: BP 165/86
== END | disposition home or self-care (01) ==
LOC: OR 07:52
PROVIDERS: ATTEND Surgery Vascular Surgery
DX: I87.1 Compression of vein (principal); I12.0 Hypertensive chronic kidney disease with stage 5 chronic kidney disease or end stage renal disease; N18.6 End stage renal disease; Z79.899 Other long term (current) drug therapy; Z98.890 Other specified postprocedural states; Z20.822 Contact with and (suspected) exposure to COVID-19
CPT/HCPCS: 36415; 36831; 80048; 85025; 85610; 85730; 87426; 93005; C1757; J1644; J2175; J2250; J2704; J3010; J3490; J2795